=== PATIENT | male | born 1975 | race Caucasian/White ===

== ENCOUNTER 2022-01-17 21:21 | Emergency (ER) | payer SELFPAY ==
[~2022-01-17] VITALS: Ht 177.8 cm; Wt 86.4 kg
[2022-01-17 21:24] VITALS: BP 146/101
== END 2022-01-17 23:17 | disposition home or self-care (01) ==
LOC: ER 21:23
DX: F99 Mental disorder, not otherwise specified (principal); F31.9 Bipolar disorder, unspecified
CPT/HCPCS: 99281

== ENCOUNTER 2024-05-12 08:01 | Emergency (ER) | payer MEDICAID ==
[~2024-05-12] VITALS: Ht 177.8 cm; Wt 86.4 kg
[2024-05-12 08:08] VITALS: BP 128/81; PULSE 76; RESP 16; TEMP 97.8; O2SAT 98
[2024-05-12] MEDS ORDERED: LIT300C PO (08:28)
[2024-05-12] MEDS: lithium carbonate 150mg capsule PO STA (08:44)
== END 2024-05-12 08:47 | disposition home or self-care (01) ==
LOC: ER 08:02
DX: Z76.0 Encounter for issue of repeat prescription (principal); F31.9 Bipolar disorder, unspecified; Z79.899 Other long term (current) drug therapy
CPT/HCPCS: 99283